=== PATIENT | male | born 1960 | race Caucasian/White ===

== ENCOUNTER 2020-12-10 14:27 | Outpatient (CLI) | payer BC, SELFPAY ==
--- NOTE | ~2020-12-10 | XR_ITS ---
EXAMINATION: XR lumbar spine 2-3V, XR sacrum coccyx min 2V EXAM DATE: 12/10/2020 15:10 INDICATION: Pain s/p fall x 3 days ago . Initial encounter. TECHNIQUE: Lumber spine frontal, lateral, lateral L5-S1 projections for interpretation. Sacrococcyge al frontal, steep frontal and lateral, lateral projections. FINDINGS: Chronic appearing mild compression fractures L3 and L4. Small to moderate endplate osteoph ytes at L2-3 and L3-4. Moderate loss of the L3-4 disc height. Mild disc disease other lumbar levels. There are no acute fractures identified. Sacrum, sacroiliac joints, sacral arcuate lines are intact. There is moderate lumbar facet arthropathy. The vertebral bodies are aligned in the AP dimension. IMPRESSION: 1. No acute lumbosacral findings. 2. Moderate spondylosis. Reviewed, dictated and finalized at location B. IMPRESSION: 1. No acute lumbosacral findings. 2. Moderate spondylosis.
--- NOTE | ~2020-12-10 | XR_ITS ---
EXAMINATION: XR ankle LT min 3V, XR foot LT min 3V EXAM DATE: 12/10/2020 15:10 (accession [id number]), 12/10/2020 15:11 (accession [id number]) INDICATION: Pain s/p fall x 3 days ago . Initial encounter. Left foot and ankle pain. TECHNIQUE: Left foot dorsoplantar, lateral and oblique projections obtained and reviewed. Left ankle frontal, lateral and oblique projections obtained and reviewed. There is no prior study for compari son. FINDINGS: Left metatarsal bones unremarkable. The left ankle mortise appears intact. There are no acute fractures or dislocations identified. There is no subcutaneous gas. The soft tissue is unrem arkable. There are no radiopaque foreign bodies. IMPRESSION: 1. Left foot, ankle exam without acute osseous findings. Reviewed, dictated and finalized at location B. IMPRESSION: 1. Left foot, ankle exam without acute osseous findings.
== END 2020-12-10 14:28 | disposition home or self-care (01) ==
LOC: CHSIMG 14:30
PROVIDERS: PCP Internal Medicine; Visit Provider Internal Medicine
DX: S99.912A Unspecified injury of left ankle, initial encounter (principal); S99.922A Unspecified injury of left foot, initial encounter; S39.92XA Unspecified injury of lower back, initial encounter
CPT/HCPCS: 72100; 72220; 73610; 73630

== ENCOUNTER → 2021-07-19 08:03 | Outpatient (CLI) | payer BC, SELFPAY ==
--- NOTE | ~2021-07-19 | MR_ITS ---
EXAMINATION: MR ankle LT wo con DATE: 07/19/2021 08:56 INDICATION: Left ankle pain and swelling TECHNIQUE: Magnetic resonance imaging (MRI) of the left ankle was performed without intravenous contr ast. Sequences included sagittal, coronal, and axial proton-density weighted fast spin echo without a nd with fat saturation. COMPARISON: None. FINDINGS: Medial ankle ligaments: Deep and superficial deltoid ligaments as well as the spring ligament are normal. Lateral ankle ligaments: The anterior and posterior inferior tibiofibular ligaments are normal. The anterior talofibular, calc aneofibular and posterior talofibular ligaments are normal. Tendons: Mild Achilles tendinosis without discrete tear. The peroneus longus and brevis tendons are normal. Th e tibialis anterior and extensor hallucis longus and extensor digitorum longus tendons are normal. Th e tibialis posterior, flexor digitorum longus and flexor hallucis longus tendons are normal. Edema an d some architectural distortion with lax appearing muscle fibers along the distal myotendinous juncti on of the flexor digitorum longus muscle belly consistent with muscle strain. Plantar fascia: Small plantar calcaneal spur with mild thickening and increased signal of the central component of th e plantar aponeurosis consistent with mild tendinopathy/enthesopathy without discrete tear. Bones/other: Bone alignment is normal. Normal marrow signal throughout with no fracture or pathologic marrow repla cing process. Joint spaces are normal. Fluid: Physiologic amount fluid in the joint spaces. There is prominent subcutaneous edema about the distal calf which extends about the lateral malleolus and to lesser degree over the dorsolateral aspect of t he midfoot. IMPRESSION: 1. Increased signal in the visualized distal portion of the flexor digitorum longus consistent with l ikely low-grade strain. 2. Mild distal Achilles tendinosis without discrete tear. 3. Chronic mild plantar enthesopathy. Reviewed, dictated and finalized at location B. IMPRESSION: 1. Increased signal in the visualized distal portion of the flexor digitorum lo ngus consistent with likely low-grade strain. 2. Mild distal Achilles tendinosis without discrete tear. 3. Chronic mild plantar enthesopathy.
== END ==
PROVIDERS: PCP Internal Medicine; Visit Provider Internal Medicine
DX: M77.32 Calcaneal spur, left foot (principal)
CPT/HCPCS: 73721

== ENCOUNTER 2021-08-26 10:02 | Outpatient (CLI) | payer BC, SELFPAY ==
--- NOTE | ~2021-08-26 | US_ITS ---
US arterial ankle brachial ind INDICATION: With peripheral arterial disease TECHNIQUE: Segmental pressures and plethysmographic and Doppler waveforms of the brachial and lower e xtremity arteries were obtained. COMPARISON: None. FINDINGS: Right and left brachial artery pressures of 157 mm Hg and 153 mm Hg, respectively, are concordant (no rmal difference <= 30 mmHg). The right ankle-brachial index (HOLLY) is 1.1 (normal >= 0.9-1.0). The right great toe-brachial index ( TBI) is 0.66 (normal >= 0.60). The left HOLLY is 1.13. The left TBI is 0.75. IMPRESSION: 1. Normal bilateral ankle-brachial indices. Reviewed, dictated and finalized at location A.
== END 2021-08-26 10:03 | disposition home or self-care (01) ==
LOC: CHSIMG 10:04
PROVIDERS: PCP Internal Medicine; Visit Provider Internal Medicine
DX: I73.9 Peripheral vascular disease, unspecified (principal)
CPT/HCPCS: 93922

== ENCOUNTER 2021-09-25 08:44 | Outpatient (CLI) | payer BC, SELFPAY ==
--- NOTE | 2021-09-25 11:00 | NEURO_ITS ---
Impression: # Complains of numbness of lower extremities. # Mild Peroneal neuropathy. # Needle/EMG exam mildly neurogenic. # Clinical correlation recommended; Higher involvement needs to be ruled out. Nerve Conduction Studies Anti Sensory Summary Table Stim Site NR Peak (ms) P-T Amp (?V) Site1 Site2 Delta-P (ms) Dist (cm) Albino (m/s) Left Sup Fibular Anti Sensory (Ant Lat Mall) 14 cm 3.9 18.4 14 cm Ant Lat Mall 3.9 16.0 41 Right Sup Fibular Anti Sensory (Ant Lat Mall) 14 cm 3.7 7.0 14 cm Ant Lat Mall 3.7 16.0 43 Left Sural Anti Sensory (Lat Mall) Right Sural Anti Sensory (Lat Mall) NO RESPONSE Calf NR Calf Lat Mall 16.0 Motor Summary Table Stim Site NR Onset (ms) O-P Amp (mV) Site1 Site2 Delta-0 (ms) Dist (cm) Albino (m/s) Left Peroneal Motor (Vastus Med) Ankle 5.1 2.0 Popit Ankle 9.0 37.0 41 Popit 14.1 1.4 Right Peroneal Motor (Vastus Med) Ankle 4.6 1.8 Popit Ankle 8.6 38.0 44 Popit 13.2 1.3 Left Tibial Motor (Abd Damon Brev) Ankle 5.2 5.1 Knee Ankle 9.6 41.0 43 Knee 14.8 2.5 Right Tibial Motor (Abd Damon Brev) Ankle 4.9 2.8 Knee Ankle 9.5 41.0 43 Knee 14.4 1.6 F Wave Studies NR F-Lat (ms) L-R F-Lat (ms) Left Peroneal (Mrkrs) (EDB) 58.63 0.47 Right Peroneal (Mrkrs) (EDB) 58.16 0.47 Left Tibial (Mrkrs) (Abd Hallucis) 59.11 0.25 Right Tibial (Mrkrs) (Abd Hallucis) 59.36 0.25 EMG Side Muscle Nerve Root Ins Act Fibs Amp Dur Recrt Comment Right AntTibialis Dp Br Fibular L4-5 Nml Nml Nml Nml Reduced Right Gastroc Tibial S1-2 Nml Nml Nml Nml Reduced Right Fibularis Long Sup Br Fibular L5-S1 Nml Nml Nml Nml Reduced Right Flex Dig Long Tibial L5-S2 Nml Nml Nml Nml Reduced Right Ext Dig Brev Dp Br Fibular L5, S1 Nml Nml Nml Nml Reduced Left AntTibialis Dp Br Fibular L4-5 Nml Nml Nml Nml Reduced Left Gastroc Tibial S1-2 Nml Nml Nml Nml Reduced Left Fibularis Long Sup Br Fibular L5-S1 Nml Nml Nml Nml Reduced Left Flex Dig Long Tibial L5-S2 Nml Nml Nml Nml Reduced Left Ext Dig Brev Dp Br Fibular L5, S1 Nml Nml Nml Nml Reduced MTDD
== END 2021-09-25 08:45 | disposition home or self-care (01) ==
LOC: ANHNEURO 08:52
PROVIDERS: PCP Internal Medicine; Visit Provider Internal Medicine
DX: I73.9 Peripheral vascular disease, unspecified (principal); G62.9 Polyneuropathy, unspecified
CPT/HCPCS: 95886; 95910

== ENCOUNTER → 2021-10-13 09:15 | Outpatient (CLI) | payer BC, SELFPAY ==
--- NOTE | ~2021-10-13 | MR_ITS ---
. EXAMINATION: MR lumbar spine wo con DATE: 10/13/2021 09:44 INDICATION: Lumbar radiculopathy. TECHNIQUE: Magnetic resonance imaging (MRI) of the lumbar spine was performed without intravenous con trast. Sequences included sagittal T2-weighted FSE, sagittal T2-weighted FS FSE, sagittal T1-weighted FSE, and axial T2-weighted FSE. COMPARISON: Lumbar spine radiographs 12/10/2020 FINDINGS: There is 4 degrees levocurvature of lumbar spine. There is 3 mm retrolisthesis of L3 on L4. There are Schmorl's nodes at L3-L4. There is moderately decreased disc height at L3-L4. The distal s luigi cord signal intensity is normal. The conus medullaris is at L1. The following disc levels are s pecifically discussed: L1-L2: The disc does not extend beyond the endplate margin. There is mild bilateral facet joint osteo arthritis. There is no neural foraminal stenosis. There is no central canal stenosis. L2-L3: The disc is bulging. There is mild bilateral facet joint osteoarthritis. There is mild bilater al neural foraminal stenosis. There is mild central canal stenosis. L3-L4: The disc is bulging and has an annular fissure. There is mild bilateral facet joint osteoarthr itis. There is moderate bilateral neural foraminal stenosis. There is mild central canal stenosis at the midline. There is moderate stenosis of the lateral recesses. L4-L5: The disc is bulging. There is mild bilateral facet joint osteoarthritis. There is moderate judy ateral neural foraminal stenosis. There is mild central canal stenosis. L5-S1: The disc does not extend beyond the endplate margin. There is mild right and moderate left fac et joint osteoarthritis. There is no neural foraminal stenosis. There is no central canal stenosis. IMPRESSION: 1. Moderate lumbar spondylosis. Reviewed, dictated and finalized at location A.
== END ==
PROVIDERS: PCP Internal Medicine; Visit Provider Internal Medicine
DX: M54.16 Radiculopathy, lumbar region (principal); M43.06 Spondylolysis, lumbar region
CPT/HCPCS: 72148

== ENCOUNTER 2022-06-04 00:49 | Day surgery (SDC) | payer BC, SELFPAY ==
[2022-05-20 08:59] VITALS: BMI 35.2
[2022-06-04 06:39] VITALS: BP 106/63; PULSE 49; RESP 18; TEMP 35.5; O2SAT 100
[2022-06-04] MEDS: LACTATED RINGERS 1,000 ML 150 ML IV CONT (06:41)
--- NOTE | 2022-06-04 07:37 | P.PNAN_ITS ---
Anes - Initial Pre Proc Eval Procedure: Operation Date: 06/04/22 08:00 Proposed Procedures p Screening Colonoscopy - Ilya Morocho DO Date/Time: 06/04/22 07:37 Surgeon: Ilya Morocho DO Pre Op Diagnosis: hemorrhoids, hx colon polyps Patient Data Age: 62 Gender: M Height: 1.8 m Weight: 110.6 kg Last Vital Signs Temp 96 F L 06/04/22 06:39 Pulse 49 L 06/04/22 06:39 Resp 18 06/04/22 06:39 BP 106/63 06/04/22 06:39 Pulse Ox 100 06/04/22 06:39 O2 Del Method Room Air 06/04/22 06:39 Allergies Allergy/AdvReac Type Severity Reaction Status Date / Time No Known Allergies Allergy Verified 06/04/22 06:37 Home Medications Medication Instructions Recorded Confirmed Type aspirin 81 mg tablet 81 mg PO DAILY 05/20/22 06/04/22 History atorvastatin 20 mg tablet 20 mg PO DAILY 05/20/22 06/04/22 History lisinopril 20 2 tablet PO DAILY 05/20/22 06/04/22 History mg-hydrochlorothiazide 12.5 mg tablet nebivolol 20 mg tablet 20 mg PO DAILY 05/20/22 06/04/22 History spironolactone 50 mg tablet 50 mg PO DAILY 05/20/22 06/04/22 History Patient hx anesthesia problems: none Family hx anesthesia problems: none Results Review: All pre-operative results and documents have been reviewed as part of the pre- operative evaluation. [facility] Social History Social History Smoking status: Never smoker Alcohol intake: current Drinks per week: 9 Alcohol use details: BEERS Substance use: never Substance use type: does not use Living arrangements: with family Spiritual care concerns: No Anes - Eval Final PreProcedure Day of Procedure 06/04/22 07:37 Patient weight: obese Heart: regular rate and rhythm Lungs: clear to auscultation Airway: Mallampati scale class II Neurological: alert and oriented Last oral intake: >/= 8 hours ASA classification: III Emergent: no Anesthetic plan: proceed Anesthesia type and monitoring: general GIVS and standard monitoring Results Review: All pre-operative results and documents have been reviewed as part of the pre- operative evaluation. Informed Consent: The patient's anesthetic plan and its attendant risks and benefits were discussed with the patient/family/POA. Questions were solicited and answers provided to the satisfaction of the patient/family/POA.
--- NOTE | 2022-06-04 07:56 | PM.IMHP ---
H&P: HPI History of Present Illness Date/Time: 06/04/22 07:56 Chief Complaint: family history of colon cancer Narrative: this is a 62-year-old man who presents for colonoscopy. He has a positive family history of colon cancer. His last colonoscopy was about 10 years ago. He denies any hematochezia or melena. He does occasionally have some problems with internal hemorrhoids. Review of Systems Review of Systems: All systems reviewed & are unremarkable except as noted in HPI and below Constitutional: Constitutional: Denies chills, Denies fever(s), Denies headache(s) and Denies weight loss Eyes: Eyes: Denies change in vision ENT: Denies dizziness, Denies headache(s), Denies neck mass and Denies throat swelling Cardiovascular: Cardiovascular: Denies chest pain, Denies lightheadedness and Denies dyspnea Respiratory: Respiratory: Denies cough, Denies dyspnea and Denies wheezing Gastrointestinal: Gastrointestinal: Denies abdominal pain, Denies change in bowel habits, Denies nausea and Denies vomiting Genitourinary: Genitourinary: Denies hematuria and Denies dysuria Musculoskeletal: Musculoskeletal: Reports as per HPI Integumentary/Breasts: Skin/Breast: Reports as per HPI Neurologic: Denies dizziness and Denies headache(s) Allergic/Immunologic: Allergic/Immunologic: Denies throat swelling and Denies wheezing PMFSH Social History Social History Smoking status: Never smoker Alcohol intake: current Drinks per week: 9 Alcohol use details: SARA Substance use: never Substance use type: does not use Living arrangements: with family Spiritual care concerns: No Meds Home Medications and Allergies Home Medications Medication Instructions Recorded Confirmed Type aspirin 81 mg tablet 81 mg PO DAILY 05/20/22 06/04/22 History atorvastatin 20 mg tablet 20 mg PO DAILY 05/20/22 06/04/22 History lisinopril 20 2 tablet PO DAILY 05/20/22 06/04/22 History mg-hydrochlorothiazide 12.5 mg tablet nebivolol 20 mg tablet 20 mg PO DAILY 05/20/22 06/04/22 History spironolactone 50 mg tablet 50 mg PO DAILY 05/20/22 06/04/22 History Allergies Allergy/AdvReac Type Severity Reaction Status Date / Time No Known Allergies Allergy Verified 06/04/22 06:37 Vital Signs Vital Signs - 24 hr 06/04/22 06:39 Temperature 35.5 C L Pulse Rate 49 L Respiratory Rate 18 Blood Pressure 106/63 Pulse Oximetry 100 Oxygen Delivery Room Air Exam Const: General: no acute distress and alert Orientation/consciousness: patient oriented x3 HENMT: Head: normocephalic and atraumatic Ears: hearing grossly normal bilaterally Face/Nose/Sinus: Normal nares present Mouth: Yes Normal oral and palatal mucosa present Eyes: Periorbital: periorbital findings normal Sclera: sclerae normal EOM: EOMs intact bilaterally Neck: Neck: normal visual inspection, no lymphadenopathy and trachea midline Chest: Chest palpation & inspection: normal inspection of the chest Resp: Effort & Inspection: normal respiratory effort Auscultation: clear to auscultation bilaterally Cardio: Jugular venous distension: no JVD Rate: regular rate Rhythm: regular rhythm Heart sounds: S1 normal heart sound present and S2 normal heart sound present Peripheral pulses: Peripheral pulses 2+ throughout GI: Inspection: normal to inspection GI Palp: Yes Soft to palpation, No Tenderness to palpation present (GI), No Guarding due to palpation present (GI) and No Rebound tenderness present Percussion: Yes normal to percussion Auscultation: normal bowel sounds : General: Yes no CVA tenderness Back/Spine/Pelvis: Back: no CVA tenderness Neuro: General: patient oriented x3, no focal motor deficits and CN's II-XI intact bilaterally Cognition (Neuro): normal cognition Speech: normal speech Motor exam (neuro): 5/5 motor strength present throughout Extrem: General: capillary refill normal and no clubbing, cyanosis or edema Assessment and Plan
[2022-06-04 08:31] VITALS: BP 130/96; PULSE 62; RESP 20; O2SAT 99
[2022-06-04 08:41] VITALS: BP 94/55; PULSE 53; RESP 19; O2SAT 96
[2022-06-04 08:51] VITALS: BP 93/58; PULSE 48; RESP 11; O2SAT 100
== END 2022-06-04 08:59 | disposition home or self-care (01) ==
PROVIDERS: PCP Internal Medicine; Visit Provider Surgery
PROC: 0DJD8ZZ Inspection of Lower Intestinal Tract, Via Natural or Artificial Opening Endoscopic (ICD-10-PCS; CPT 45378; principal; 2022-06-04 08:00)
DX: Z12.11 Encounter for screening for malignant neoplasm of colon (principal); K64.8 Other hemorrhoids; Z80.0 Family history of malignant neoplasm of digestive organs; Z79.82 Long term (current) use of aspirin; E66.9 Obesity, unspecified; Z68.34 Body mass index [BMI] 34.0-34.9, adult
CPT/HCPCS: 45378; J2704; J7120

== ENCOUNTER → 2022-12-10 13:45 | Outpatient (REF) | payer BC, SELFPAY | LOC: ANHLAB 13:45 | PROVIDERS: PCP Internal Medicine; Visit Provider Plastic Surgery | DX: D23.121 Other benign neoplasm of skin of left upper eyelid, including canthus (principal) | CPT/HCPCS: 88305 ==

== ENCOUNTER 2022-12-28 08:03 | Outpatient (CLI) | payer BC, SELFPAY ==
--- NOTE | 2022-12-28 08:11 | EST_ITS ---
Patient Info Name: Wayne Pinto Age: 62 years : 1960 Gender: Male Ht: 69 in Wt: 253 lbs BSA: 2.41 m2 HR: 47 bpm BP: 128 / 69 mmHg Heart Rhythm: Bradycardia Technical Quality: Good Exam Date: 12/28/2022 9:52 AM Exam Location: [facility] Patient Status: Outpatient Admit Date: 12/28/2022 Staff Ordering Physician: Matty Munson MD Attending Provider: Matty Munson MD Exam Type: CA stress chrystal w NM Study Info A regadenoson stress test was performed. History/Risk Factors Hypertension: Yes Dyslipidemia: Yes Summary 1. 1. Negative lexiscan stress test for ischemic ST changes by ECG criteria. 2. 2. Stable hemodynamics throughout the test. 3. 3. Nuclear scan to follow and will be reported separately. Please correlate with it. Protocol: LEXISCAN Stress ECG Details Stage: REST Duration (min): 3 min : 6 sec HR (bpm): 47 SBP (mmHg): 128 DBP (mmHg): 69 Stage: REST Duration (min): 10 min : 10 sec HR (bpm): 48 SBP (mmHg): 128 DBP (mmHg): 69 Stage: STAGE 1 Duration (min): 0 min : 14 sec HR (bpm): 49 SBP (mmHg): 128 DBP (mmHg): 69 Stage: RECOVERY Duration (min): 0 min : 45 sec HR (bpm): 64 SBP (mmHg): 128 DBP (mmHg): 69 Stage: RECOVERY Duration (min): 1 min : 45 sec HR (bpm): 67 SBP (mmHg): 128 DBP (mmHg): 69 Stage: RECOVERY Duration (min): 2 min : 46 sec HR (bpm): 65 SBP (mmHg): 113 DBP (mmHg): 56 Stage: RECOVERY Duration (min): 3 min : 45 sec HR (bpm): 65 SBP (mmHg): 110 DBP (mmHg): 59 Stage: RECOVERY Duration (min): 4 min : 45 sec HR (bpm): 62 SBP (mmHg): 98 DBP (mmHg): 60 Stage: RECOVERY Duration (min): 5 min : 46 sec HR (bpm): 61 SBP (mmHg): 110 DBP (mmHg): 60 Stage: RECOVERY Duration (min): 6 min : 3 sec HR (bpm): 62 SBP (mmHg): 110 DBP (mmHg): 60 Rest HR: 48 bpm Peak HR: 70 bpm Rest Sys BP: 128 mmHg Peak Sys BP: 113 mmHg Max Pred HR: 158 bpm % Max Pred HR: 44 % Target HR: 134 bpm Max RPP: 7,910 bpm*mmHg Termination Reason: Completed Protocol Cardiac Symptoms: None Total Time: 0 min : 14 sec Rest Daley BP: 69 mmHg Peak Daley BP: 56 mmHg Total Dose: 0.4 mg Resting ECG Sinus bradycardia, delayed precordial R/S transition. Stress ECG No abnormal ST/T wave changes. Arrhythmias No arrhythmias were observed during the examination. Report Signatures
--- NOTE | 2022-12-28 17:07 | WPDCARIOSTRE ---
Nuclear Stress Test INDICATIONS Indications: Dyspnea PROCEDURE Procedure Performed: Myocardial Perf Spect-Multi Procedure: Patient underwent a lexiscan stress test and was immediately injected with 30 mCi of cardiolyte. Multiple tomographic images were obtained. These are of good quality. There is evidence of small size, mild anterior perfusion defect with stress imaging. A separate resting images were obtained after patient was injected with 10 mCi of cardiolyte. Multiple tomographic images were obtained. These are of good quality. There is evidence of small size, mild anterior perfusion defect with rest imaging. CONCLUSION Conclusion: 1. Myocardial perfusion imaging demonstrating a fixed small size anterior perfusion defect suggestive of breast attenuation artifact. 2. No evidence of reversible ischemia. 3. Left ventriculogram demonstrates normal measured ejection fraction of 73% with no wall motion abnormalities. 4. TID score 0.97 is normal.
== END 2022-12-28 08:04 | disposition home or self-care (01) ==
LOC: CHSCARD 08:06
PROVIDERS: PCP Internal Medicine; Visit Provider Internal Medicine
DX: R06.00 Dyspnea, unspecified (principal)
CPT/HCPCS: 78452; 93017; A9502; J2785

== ENCOUNTER 2023-02-26 10:52 | Outpatient (CLI) | payer BC, SELFPAY ==
--- NOTE | ~2023-02-26 | XR_ITS ---
AP and lateral views of the bilateral hips Clinical history: Pain Findings: No acute fracture or dislocation is seen. Osseous alignment is anatomic. Bilateral hip and SI joint spaces are preserved. Soft tissues are unremarkable. Impression: No significant abnormality is seen. Reviewed, dictated and finalized at location . K TRACER Impression: No significant abnormality is seen.
== END 2023-02-26 10:53 | disposition home or self-care (01) ==
LOC: CHSIMG 10:59
PROVIDERS: PCP Internal Medicine; Visit Provider Internal Medicine
DX: M25.551 Pain in right hip (principal); M25.552 Pain in left hip
CPT/HCPCS: 73521

== ENCOUNTER 2023-04-05 12:59 | Outpatient (RCR) | payer BC, SELFPAY ==
--- NOTE | 2023-04-05 13:58 | OPREHPOC ---
Outpatient Therapy Plan of Care This is a Multidisciplinary Plan of Care that may contain components documented by all disciplines (PT, OT, and ST.) PT Problem 1 PT Problem #1 Knowledge Deficit PT Goal 1 Goal Patient to demonstrate independence with HEP Target Visit 4 PT Problem 2 PT Problem #2 Impaired Strength PT Goal 1 Goal 1. Patient to demonstrate 5/5 B hip strength to improve stair navigation 2. Patient to demonstrate 4+/5 lower and upper abdominal strength Target Visit 8 PT Problem 3 PT Problem #3 Impaired Functional Mobil PT Goal 1 Goal 1. Patient to score 56/56 on Drake Balance to decrease fall risk 2. Patient to ambulate 1600 feet during 6 min walk test to improve ability to grocery shop without fatigue Target Visit 8
--- NOTE | 2023-04-05 13:58 | PTOPEVAL1 ---
Assessment and note entered by Alexus Chew DPT Evaluation Information Assessment Status Evaluation Diagnosis B thigh pain and weakness Onset 03/17/23 Subjective Information Patient reports over the last year he has had B thigh pain and weakness. He reports he also feels like he has decreased balance. He reports he does not have back or hip pain. He reports he has had blood work and EMG and they were both normal. He reports most difficulty with walking, getting into and out of a vehicle, and stair navigation. He reports he is getting more blood work at the end of March. He reports he sits throughout the work day but does go to the gym 4-5 times a week and walks on the treadmil. Reported Pain Level Pain Score 0: Self Report Assessment PT Clinical Summary Mr. Pinto is a 62 year old male who presents to PT with with B LE weakness. Patient demonstrates decreased B hip and glute strength, impaired core strength and decreased balance impairing his ability to navigate to grocery shop, navigate stairs and get into and out of the vehicle. He would benefit from skilled PT to address impairments and return to PLOF. Plan of Care Interventions Electrical Stimulation,Gait Training,Hot Pack/Cold Pack,Manual Therapy,Mechanical Traction,Neuro Re- education,Patient/Caregiver Educati,Therapeutic Activities,Therapeutic Exercise PT Services Indicated Yes Treatment Frequency and 2x weekly for 8 visits Duration These treatments will address the objective and functional deficits as defined above. The patient will be advanced safely and appropriately in order for the patient to progress towards his/her prior level of function. Additional exercises will be introduced and as well as a comprehensive home exercise program upon discharge, if needed, ?to ensure carryover of functional gains achieved in the clinic. This treatment plan has been reviewed and agreement upon by the patient.
--- NOTE | 2023-05-13 17:37 | OPREHPOC ---
Outpatient Therapy Plan of Care This is a Multidisciplinary Plan of Care that may contain components documented by all disciplines (PT, OT, and ST.) PT Problem 1 PT Problem #1 Knowledge Deficit PT Goal 1 Goal Patient to demonstrate independence with HEP Target Visit 4 Progress Met PT Problem 2 PT Problem #2 Impaired Strength PT Goal 1 Goal 1. Patient to demonstrate 5/5 B hip strength to improve stair navigation 2. Patient to demonstrate 4+/5 lower and upper abdominal strength Target Visit 8 Progress Partially Met PT Problem 3 PT Problem #3 Impaired Functional Mobil PT Goal 1 Goal 1. Patient to score 56/56 on Drake Balance to decrease fall risk 2. Patient to ambulate 1600 feet during 6 min walk test to improve ability to grocery shop without fatigue Target Visit 8 Progress Partially Met
--- NOTE | 2023-05-13 17:37 | PTOPDC ---
Assessment and note entered by JT File, PT Evaluation Information Assessment Status Discharge Diagnosis B thigh pain and weakness Onset 03/17/23 Subjective Information patient reports he is doing well. overall. he reports he has no pain in the LE's. he reports he continues to feel they are heavy. he reports he does feel stronger. Assessment PT Clinical Summary mr. cooper presents to skilled PT for his 8th skilled therapy visit. he presents today with no pain in the bilateral LE's. he does continue to report a heaviness feeling. he displays improvements in LE strength, core strength, and balance. however, he still lacks full achievement of goals for these objective/functional measures. patient is confident he can continue with his HEP at home, and is ready to DC skilled PT. patient would also benefit from 3x or more weekly attendance to a gym or exercise class for overall strength, endurance, and balance improvements. Plan of Care PT Services Indicated Yes
== END 2023-04-29 20:00 | disposition home or self-care (01) ==
LOC: CHSPT 12:59
PROVIDERS: PCP Internal Medicine; Visit Provider Internal Medicine
DX: M54.50 Low back pain, unspecified (principal); G62.9 Polyneuropathy, unspecified
CPT/HCPCS: 97110; 97112; 97150; 97161

== ENCOUNTER 2025-03-02 08:29 | Outpatient (CLI) | payer BC, SELFPAY ==
--- NOTE | ~2025-03-02 | XR_ITS ---
EXAMINATION: XR knee LT 3V, 03/02/2025 8:50 MINING PLANT OPERATOR HISTORY: Left knee pain x1 week, NKI. COMPARISON: No comparisons available. Findings: No acute fracture or malalignment. No significant degenerative changes. Soft tissues unremarkable. Impression: No acute fracture or malalignment. Reviewed, dictated and finalized at location P. NG PLANT OPERATOR Impression: No acute fracture or malalignment.
--- OUTSIDE RECORDS SUMMARY | 2025-03-02 08:39 | XMS_ITS | Clinical Summary ---
Author Organization [facility] Address [address] [place] [address] Care Team Providers Care Apparel Merchandiser Name Role Phone Matty Munson MD Primary Care Provider [phone] Allergies No known active allergies Medications atorvastatin (LIPITOR) 20 mg tablet 3 Active lisinopril-hydr oCHLOROthiazide (ZESTORETIC) 20-12.5 mg per tablet 3 Active nebivoloL (BYSTOLIC) 20 mg tablet Take 0.5 tablets (10 mg total) by mouth daily 3 Active spironolactone (ALDACTONE) 50 mg tablet Take 0.5 tablets (25 mg total) by mouth daily 3 Active aspirin 81 mg enteric coated tablet Take 1 tablet (81 mg total) by mouth daily Active coenzyme Q10 200 mg capsule Take 1 capsule (200 mg total) by mouth daily Active pregabalin (LYRICA) 50 mg capsule Take 1 capsule (50 mg total) by mouth 2 (two) times a day For the first week take 50 mg at bedtime, then take 50 mg twice a day thereafter 60 capsule 3 3 Active Repatha SureClick 140 mg/mL pen injector INJECT 1 ML UNDER THE SKIN EVERY 2 WEEKS 4 Active indapamide (LOZOL) 1.25 mg tablet 3 Active lisinopriL (PRINIVIL,ZESTR IL) 40 mg tablet 3 Active nebivoloL (BYSTOLIC) 5 mg tablet 3 Active Active Problems No known active problems Social History Tobacco Use Types Packs/Day Years Used Date Smoking Tobacco: Never Passive Smoke Exposure: Never Smokeless Tobacco: Never Tobacco Cessation:Counseling Given: Not Answered Personal Safety Answer Date Recorded Getting School Help Needed Not on file 04/02 Sex and Gender Information Value Date Recorded Sex Assigned at Not on file Legal Sex Male 11:02 AM CDT Gender Identity Not on file Sexual Orientation Not on file Last Filed Vital Signs Vital Sign Reading Time Taken Comments Blood Pressure 130/72 04/02/2023 10:28 AM CLINICAL RESEARCH MONITOR Pulse 50 04/02/2023 10:28 AM CLINICAL RESEARCH MONITOR Temperature - - Respiratory Rate - - Oxygen Saturation 98% 04/02/2023 10:28 AM CLINICAL RESEARCH MONITOR Inhaled Oxygen Concentration - - Weight 113.4 kg (250 lb) 04/02/2023 10:28 AM CLINICAL RESEARCH MONITOR Height 177.8 cm (5' 10) 04/02/2023 10:28 AM CLINICAL RESEARCH MONITOR Body Mass Index 35.87 04/02/2023 10:28 AM CLINICAL RESEARCH MONITOR Plan of Treatment Health Maintenance Due Date Last Done Comments Colon Cancer Screening-Colonoscopy 1960 Depression Screening 1960 Hepatitis C Screening 1960 Prostate Cancer Screening-PSA 1960 Hepatitis B Screening 1978 Regular Well Visit/Exam 18-64 1978 Pneumococcal vaccine <65 (1 of 2 - PCV) 1979 Zoster Vaccine (1 of 2) 1979 Covid-19 Vaccine (4 - 2024- season) 2024 01/25/2021, 06/28/2020, 05/31/2020 Influenza Vaccine (#1) 2024 DTaP/Tdap/Td Vaccine (3 - Td or Tdap) 08/07/203101/2022, 04/19/2012 Insurance [employer] [facility] ACCESS Care Teams Apparel Merchandiser Relationship Specialty Start Date End Date Matty Munson MD [address] [place] [address] PCP - General Internal Medicine 12/09/22
== END 2025-03-02 08:30 | disposition home or self-care (01) ==
LOC: CHSIMG 08:30
PROVIDERS: PCP Internal Medicine; Visit Provider Internal Medicine
DX: M25.562 Pain in left knee (principal)
CPT/HCPCS: 73562

== ENCOUNTER 2025-03-19 12:25 | Outpatient (CLI) | payer BC, SELFPAY ==
--- NOTE | ~2025-03-19 | US_ITS ---
EXAMINATION: US carotid duplex BI DATE: 03/19/2025 12:58 INDICATION: Carotid stenosis TECHNIQUE: Grayscale, color Doppler, and pulsed Doppler images of the cervical carotid arteries were obtained. The degree of vessel stenosis is placed in one of the following categories: normal, <50%, 50-69%, >=70% but less than near- occlusion, near-occlusion, or total occlusion. Note that percent stenosis relative to normal distal artery lumen diameter is indirectly measured from velocity measurements as described by Luis, et al. Radiology 2003; 229:340-346. Notes: Normal: Peak systolic velocity <125 centimeters/sec and no plaque <50%. Peak systolic velocity <125 (EDV <40; ICA/CCA PSV ratio <2.0; used these factors only a tandem lesions or low cardiac output or contralateral disease) 50-69 %: PSV 125-230 (EDV 40-100; ratio 2-4) >= 70% but less than near occlusion: PSV greater than 230 (EDV > 100; ratio> 4.0) Near Occlusion: PSV that is variable; markedly narrowed lumen Occlusion: Absent flow on color/spectral Doppler and no lumen on salinas scale. COMPARISON: None. FINDINGS: RIGHT: The right common carotid artery (CCA) peak systolic velocity (PSV) is 123 cm/s. The right internal carotid artery (ICA) PSV is 180 cm/s. The right ICA end- diastolic velocity (EDV) is 51 cm/s. The right ICA/CCA PSV ratio is 1.5. The external carotid artery (ECA) PSV is 82 cm/s. There is antegrade flow in the right vertebral artery. LEFT: The left CCA PSV is 101 cm/s. The left ICA PSV is 69 cm/s. The left ICA EDV is 25 cm/s. The left ICA/CCA PSV ratio is 0.68. The ECA PSV is 118 cm/s. There is antegrade flow in the left vertebral artery. IMPRESSION: 1. 50-69% stenosis in the right internal carotid artery by sonographic criteria. 2. Less than 50% stenosis in the left internal carotid artery by sonographic criteria. Reviewed, dictated and finalized at location O. R FABRICATION OPERATOR IMPRESSION: 1. 50-69% stenosis in the right internal carotid artery by sonographic criteria . 2. Less than 50% stenosis in the left internal carotid artery by sonographic cr iteria.
--- OUTSIDE RECORDS SUMMARY | 2025-03-19 13:57 | XMS_ITS | Clinical Summary ---
Author Organization [facility] Address [address] [place] [address] Care Team Providers Care Toolroom Machinist Name Role Phone Matty Munson MD Primary Care Provider [phone] Allergies No known active allergies Medications atorvastatin [...] Comments Blood Pressure 130/72 04/02/2023 10:28 AM CROCHET MACHINE OPERATOR Pulse 50 04/02/2023 10:28 AM CROCHET MACHINE OPERATOR Temperature - - Respiratory Rate - - Oxygen Saturation 98% 04/02/2023 10:28 AM CROCHET MACHINE OPERATOR Inhaled Oxygen Concentration - - Weight 113.4 kg (250 lb) 04/02/2023 10:28 AM CROCHET MACHINE OPERATOR Height 177.8 cm (5' 10) 04/02/2023 10:28 AM CROCHET MACHINE OPERATOR Body Mass Index 35.87 04/02/2023 10:28 AM CROCHET MACHINE OPERATOR Plan of Treatment Health Maintenance Due Date [...] - Td or Tdap) 08/07/203101/2022, 04/19/2012 Insurance [employer] [facility] ACCESS Care Teams Toolroom Machinist Relationship Specialty Start Date End Date Matty Munson MD [address] [place] [address] PCP - General Internal Medicine 12/09/22
== END 2025-03-19 12:26 | disposition home or self-care (01) ==
LOC: CHSIMG 12:28
PROVIDERS: PCP Internal Medicine; Visit Provider Internal Medicine
DX: I65.23 Occlusion and stenosis of bilateral carotid arteries (principal)
CPT/HCPCS: 93880